=== PATIENT | male | born 1965 | race Caucasian/White ===

== ENCOUNTER 2021-02-05 06:53 | Outpatient (REF) | payer BC, SELFPAY ==
[2021-02-05 07:33] LABS: Hematocrit 46.8 % (42-52); Hemoglobin 15.7 g/dl (14.0-18.0); Mean Corpuscular HGB Conc 33.5 g/dl (31.0-36.0); Mean Corpuscular Volume 86.5 fL (80-98); Mean Platelet Volume 9.9 fL (9.4-12.4); Platelet Count 254 X10*3/uL (160-400); Red Blood Count 5.41 X10*6/uL (4.60-5.80); Red Cell Distribution Width 12.2 % (11.0-16.0)
[2021-02-05 08:10] LABS: Anion Gap 11 (12-20); Blood Urea Nitrogen 17 mg/dL (9-16); Carbon Dioxide 29 mmol/L (22-29); Chloride 105 mmol/L (96-108); Potassium 4.6 mmol/L (3.3-5.1); Sodium 140 mmol/L (135-145)
[2021-02-05 08:11] LABS: Alanine Aminotransferase 14 U/L (0-40); Albumin Level 4.3 g/dL (3.5-5.0); Alkaline Phosphatase 67 U/L (39-117); Aspartate Amino Transferase 14 U/L (5-37); Bilirubin Direct 0.2 mg/dL (0.0-0.5); Bilirubin Total 0.6 mg/dL (0.0-1.0); C Reactive Protein 0.13 mg/dL (< or = 0.50); Calcium 9.5 mg/dL (8.4-10.2); Estimated Glomerular Filt Rate > 60; Glucose Random 99 mg/dL (60-115); Total Protein 7.2 g/dL (6.5-8.0)
[2021-02-05 08:54] LABS: Erythrocyte Sedimentation Rate 3 MM/HR (0-15)
== END 2021-02-05 06:54 | disposition home or self-care (01) ==
LOC: HO.LAB 06:53
PROVIDERS: PCP Internal Medicine; Visit Provider Internal Medicine
DX: Z00.00 Encounter for general adult medical examination without abnormal findings (principal); E11.9 Type 2 diabetes mellitus without complications; E03.9 Hypothyroidism, unspecified; M46.20 Osteomyelitis of vertebra, site unspecified
CPT/HCPCS: 36415; 80048; 80076; 85027; 85652; 86140

== ENCOUNTER 2022-07-30 06:04 | Outpatient (REF) | payer BC, SELFPAY ==
[2022-07-30 07:15] LABS: Hematocrit 45.1 % (42.0-52.0); Hemoglobin 15.3 g/dl (14.0-18.0); Mean Corpuscular HGB Conc 33.9 g/dl (31.0-36.0); Mean Corpuscular Hemoglobin 29.7 pg (27.0-33.0); Mean Corpuscular Volume 87.6 fL (80.0-98.0); Mean Platelet Volume 10.4 fL (9.4-12.4); Platelet Count 286 X10*3/uL (160-400); Red Blood Count 5.15 X10*6/uL (4.60-5.80); White Blood Count 4.9 X10*3/uL (4.8-10.8)
[2022-07-30 07:43] LABS: Alanine Aminotransferase 18 U/L (0-40); Albumin Level 4.3 g/dL (3.5-5.0); Alkaline Phosphatase 56 U/L (39-117); Anion Gap 15 (12-20); Aspartate Amino Transferase 19 U/L (5-37); Bilirubin Direct 0.3 mg/dL (0.0-0.5); Blood Urea Nitrogen 12 mg/dL (9-16); Calcium 9.5 mg/dL (8.4-10.2); Carbon Dioxide 26 mmol/L (22-29); Chloride 105 mmol/L (96-108); Cholesterol 236 mg/dL; Estimated Glomerular Filt Rate > 60; Glucose Random 91 mg/dL (60-115); HDL Cholesterol 52 mg/dL; LDL Cholesterol Calculated 167 mg/dl; Potassium 4.5 mmol/L (3.3-5.1); Sodium 141 mmol/L (135-145); Total Protein 6.9 g/dL (6.5-8.0); Triglycerides 89 mg/dL
[2022-07-30 08:51] LABS: Appearance Urine Clear; Color Urine Yellow; Glucose Urine UA Negative (Negative); Leukocyte Esterase Urine Negative (Negative); Nitrite Urine Negative (Negative); Urine Blood Negative (Negative); Urine Ketones Negative (Negative); Urine Protein Negative (Neg-Trace)
== END 2022-07-30 06:05 | disposition home or self-care (01) ==
LOC: HO.LAB 06:04
PROVIDERS: PCP Internal Medicine; Visit Provider Internal Medicine
DX: E78.00 Pure hypercholesterolemia, unspecified (principal)
CPT/HCPCS: 36415; 80048; 80061; 80076; 81003; 84443; 85027

== ENCOUNTER 2023-07-03 09:39 | Outpatient (AMB) | payer BC, SELFPAY ==
--- NOTE | 2023-07-03 09:43 | MHC.PC.OV ---
Vital Signs 07/03/23 09:45 Height 6 ft 1 in Weight 174 lb 8 oz BMI 23.0 BP 100/70 Blood Pressure Location Lt brachial Position Sitting Pulse 55 Pulse Source Pulse Oximeter Pulse Oximetry (%) 93 Oxygen Delivery Method Room Air Intake Visit Reasons: Depression, lower back pain Intake Note: Patient is here to follow up on Depression and lower back pain. Skirt Maker Required: No Investor Relations Director: Not Required per policy Accompanied by: Self / Same As Patient Allergies No Known Allergies [No Known Allergies*] Allergy (Verified 07/06/23 10:42) Medication List - Last Reconciled 07/06/23 by Lavelle Quinones MD pregabalin (Lyrica) 75 mg PO BID Tobacco use date assessed: 07/03/23 Dental Screening Dental Screen Date: 07/03/23 Did you have a dental visit in the last 12 months?: Yes Did you have a dental problem in the last 6 months where you did not have access to dental care?: No Was dental information given to patient?: Patient has dentist HPI Depression, lower back pain HPI Details 58-year-old male presents to the office to discuss his chronic medical conditions. In January of this year, patient started having low back pain after skiing. He took 3 weeks off, had an x-ray, MRI of the spine. The MRI showed degenerative joint disease in the L3-L4 area. The orthopedic provider started him on Lyrica and has kept him at that dosage for twice a day. Continues to have pain in the lower back area. Patient is not exercising. Patient admits that part of his symptoms are aggravated due to the underlying depression. He feels very anxious about his low back pain. Able to function and do all activities of daily living. [facility] Medical History Degenerative joint disease (DJD) of lumbar spine Generalized anxiety disorder Osteomyelitis of spine Surgical History History of appendectomy History of vasectomy Family History Father Lung cancer Mother Alive and well Social History Housing: House Alcohol intake: former Patient Tobacco Use Status: Never used Tobacco e-Cigarette/Vaping Use: Never Used Second Hand Smoke Exposure: No service: No Current occupational status: employed Current occupation: [employer] Cognitive needs: No Hearing needs: No Vision needs: Yes (glasses) Questionnaire PHQ-9 Over the last 2 weeks, how often have you been bothered by any of the following problems? 1. Little interest or pleasure in doing things: more than half the days 2. Feeling down, depressed, or hopeless: more than half the days 3. Trouble falling or staying asleep, or sleeping too much: several days 4. Feeling tired or having little energy: not at all 5. Poor appetite or overeating: several days 6. Feeling bad about yourself - or that you are a failure or have let yourself or your family down: not at all 7. Trouble concentrating on things, such as reading the newspaper or watching television: not at all 8. Moving or speaking so slowly that other people could have noticed. Or the opposite - being so fidgety or restless that you have been moving around a lot more than usual: several days 9. Thoughts that you would be better off or of hurting yourself in some way: not at all Total score: 7 Depression Screening Interpretation: Positive Depression Screening Follow-up: Existing condition Source: Developed by Drs. Ryan Harmon, Yoly Lowery, Shakeel Rodríguez and colleagues, with an educational dmitry from [employer]. Thrive Questionnaire Date Thrive assessed: 07/03/23 I am a: Patient What is your living situation today?: I have a steady place to live Within the past 12 months, did the food you bought not last and you didn't have the money to get more?: Never true Within the past 12 months, did you worry whether your food would run out before you got money to buy more?: Never true Do you have trouble paying for medicines?: No Do you have trouble getting transportation to medical appointments?: No Do you have trouble paying your heating and electricity bill?: No Do you have trouble taking care of your child, family member or friend?: No Do you have trouble with day-to-day activities such as bathing, preparing meals, shopping, managing finances, etc.?: No Are you currently unemployed and looking for a job?: No Are you interested in more education?: No Currently or been in a relationship where the following occur: no concerns reported AUDIT C Alcohol Use Questionnaire (AUDIT-C) 1. How often do you have a drink containing alcohol?: Never Total Score: 0 ILENE-7 AMB Questionnaire ILENE-7 Date ILENE - 7 assessed: 07/03/23 Feeling nervous, anxious, or on edge: 0 = Not at all Not being able to stop or control worryin = Not at all Worrying too much about different things: 0 = Not at all Trouble relaxin = Not at all Being so restless that it is hard to sit still: 0 = Not at all Becoming easily annoyed or irritable: 0 = Not at all Feeling afraid as if something awful might happen: 0 = Not at all Total ILENE-7 score (0-4 normal; 5-9 mild; 10-14 moderate; 15-21 severe): 0 Source: Developed by Drs. Ryan Harmon, Yoly Lowery, Shakeel Rodríguez and colleagues, with an educational dmitry from [employer]. Physical exam (Primary Care) Vital Signs: Last Vital Signs Pulse 55 07/03/23 09:45 BP 100/70 07/03/23 09:45 Pulse Ox 93 07/03/23 09:45 Oxygen Delivery Method Room Air 07/03/23 09:45 Care Plan Goal for BP management: Blood pressure is in range. BMI result Body Mass Index 23.0 Tobacco/Smoking Status: Tobacco use Status Tobacco use date assessed 07/03/23 07/03/23 09:51 Patient Tobacco Use Status Never used Tobacco 07/03/23 09:51 e-Cigarette/Vaping Use Never Used 07/03/23 09:51 PHQ-9: PHQ-9 Score PHQ-9: Total score 7 07/03/23 09:51 Depression Screening Interpretation: Positive Depression Screening Follow-up: Existing condition Thrive Assessment: Date of Thrive Assessment Date Thrive assessed 07/03/23 07/03/23 09:51 Currently or been in a relationship where the following occur: no concerns reported Const General: cooperative, healthy appearing and comfortable HENMT Head: Yes normal to inspection and Yes atraumatic Eyes General: appearance normal, both eyes and all related structures Neck Neck: Yes normal visual inspection and Yes full ROM Chest Chest palpation & inspection: normal inspection of the chest Resp Effort & Inspection: normal respiratory effort Auscultation: clear to auscultation bilaterally Cardio Jugular venous distension: no JVD Palpation: normal PMI Rate: regular rate Heart sounds: S1 normal heart sound present and S2 normal heart sound present GI Palpation (GI): Soft to palpation and Tenderness to palpation present (GI) Extrem General: Yes normal to inspection and Yes full ROM Assessment and Plan Assessment & Plan (1) Osteomyelitis of spine: Code(s): M46.20 - Osteomyelitis of vertebra, site unspecified Plan: This condition has resolved. (2) Degenerative joint disease (DJD) of lumbar spine: Code(s): M47.816 - Spondylosis without myelopathy or radiculopathy, lumbar region Plan: Patient was advised to continue medication. He needs to start resuming his daily exercises including biking. (3) Generalized anxiety disorder: Code(s): F41.1 - Generalized anxiety disorder Plan: Currently on no medications. Patient was offered a therapist. For the moment he has declined. Orders: Orders Basic Metabolic Panel Today F41.1 - Generalized anxiety disorder, M47.816 - Spondylosis without myelopathy or radiculopathy, lumbar region Lipid Panel Today F41.1 - Generalized anxiety disorder, M47.816 - Spondylosis without myelopathy or radiculopathy, lumbar region Liver Panel Today F41.1 - Generalized anxiety disorder, M47.816 - Spondylosis without myelopathy or radiculopathy, lumbar region Thyroid Stimulating Hormone Today F41.1 - Generalized anxiety disorder, M47.816 - Spondylosis without myelopathy or radiculopathy, lumbar region Complete Blood Count no Diff Today F41.1 - Generalized anxiety disorder, M47.816 - Spondylosis without myelopathy or radiculopathy, lumbar region UA and rflx microscopic Today F41.1 - Generalized anxiety disorder, M47.816 - Spondylosis without myelopathy or radiculopathy, lumbar region Coding Level of Care Code Est Pt Level 4 (40245) Diagnoses Osteomyelitis of spine M46.20 Degenerative joint disease (DJD) of lumbar spine M47.816 Generalized anxiety disorder F41.1
[2023-07-03 09:45] VITALS: BP 100/70; PULSE 55; O2SAT 93; BMI 23.0
== END 2023-07-03 13:12 | disposition home or self-care (01) ==
PROVIDERS: PCP Internal Medicine; Visit Provider Internal Medicine
DX: M46.20 Osteomyelitis of vertebra, site unspecified (principal); M47.816 Spondylosis without myelopathy or radiculopathy, lumbar region; F41.1 Generalized anxiety disorder
CPT/HCPCS: 99214

== ENCOUNTER 2023-07-14 06:54 | Outpatient (REF) | payer BC, SELFPAY ==
[2023-07-14 07:49] LABS: Hematocrit 46.8 % (42.0-52.0); Mean Corpuscular HGB Conc 34.2 g/dl (31.0-36.0); Mean Corpuscular Hemoglobin 30.4 pg (27.0-33.0); Mean Corpuscular Volume 88.8 fL (80.0-98.0); Mean Platelet Volume 10.3 fL (9.4-12.4); Platelet Count 286 X10*3/uL (160-400); Red Blood Count 5.27 X10*6/uL (4.60-5.80); Red Cell Distribution Width 12.4 % (11.0-16.0)
[2023-07-14 09:24] LABS: Appearance Urine Clear; Color Urine Yellow; Glucose Urine UA Negative (Negative); Leukocyte Esterase Urine Negative (Negative); Nitrite Urine Negative (Negative); Urine Blood Negative (Negative); Urine Ketones Negative (Negative); Urine Protein Negative (Neg-Trace)
[2023-07-14 10:27] LABS: Alanine Aminotransferase 16 U/L (0-40); Albumin Level 4.3 g/dL (3.5-5.0); Alkaline Phosphatase 56 U/L (39-117); Anion Gap 14 (12-20); Aspartate Amino Transferase 15 U/L (5-37); Bilirubin Direct 0.3 mg/dL (0.0-0.5); Bilirubin Total 1.3 mg/dL (0.0-1.0); Blood Urea Nitrogen 9 mg/dL (9-16); Calcium 9.9 mg/dL (8.4-10.2); Carbon Dioxide 25 mmol/L (22-29); Chloride 103 mmol/L (96-108); Cholesterol 223 mg/dL; Estimated Glomerular Filt Rate > 60; Glucose Random 92 mg/dL (60-115); HDL Cholesterol 51 mg/dL; LDL Cholesterol Calculated 158 mg/dl; Sodium 138 mmol/L (135-145); Thyroid Stimulating Hormone 1.85 uIU/mL (0.32-4.0); Total Protein 7.2 g/dL (6.5-8.0); Triglycerides 73 mg/dL
== END 2023-07-14 06:55 | disposition home or self-care (01) ==
LOC: HO.LAB 06:54
PROVIDERS: PCP Internal Medicine; Visit Provider Internal Medicine
DX: M47.816 Spondylosis without myelopathy or radiculopathy, lumbar region (principal); F41.1 Generalized anxiety disorder; E78.5 Hyperlipidemia, unspecified
CPT/HCPCS: 36415; 80048; 80061; 80076; 81003; 84443; 85027

== ENCOUNTER 2025-06-30 06:25 | Outpatient (REF) | payer BC, SELFPAY ==
--- OUTSIDE RECORDS SUMMARY | 2024-07-05 05:30 | XMS_ITS ---
Author Organization [facility] Address [address] [place] [address] Care Team Providers Care Front Desk Clerk Name Role Phone Lavelle Quinones Primary Care Provider [phone] Mag Sanchez [phone] Encounters Encounter Location Date Provider Diagnosis [facility] [address] [place] [address] 07/05/2024 Mag Sanchez Plan Of Treatment No Information Progress Notes * Sera CURRYOB:1965 (60 yo M)Acc No.[id number]:07/05/2024 Progress Notes Patient: Jus POWER Provider: Amado Sanchez DPM :1965 A ge:59 Y S ex:Male Date:07/05/2024 Address:[address] [place], [place] [id number] Pcp:Lavelle Quinones Subjective: * Chief Complaints: * * Medical History: Objective: * Vitals: Assessment: Plan: * Treatment: * Images: * The named appointment provid er may or may not be the originator of this progress note, and it is not deemed complete until electronically signed by the appointment provider. Sign off status: Pending * Provider: Amado Sanchez DPM Date: 07/05/2024 Generated for Printi ng/Faxing/eTransmitting on: 06/30/2025 06:27 AM EDT
--- OUTSIDE RECORDS SUMMARY | 2025-06-30 06:28 | XMS_ITS | Clinical Summary ---
Author Organization [facility] Address [address] [facility] [place] [address] Care Team Providers Care Supervisor Nutritional Yeast Name Role Phone Unavailable Primary Care Provider Unavailabl e Social History Tobacco Use Types Packs/Day Years Used Date Smoking Tobacco: Never Assessed Sex and Gender Information Value Date Recorded Sex Assigned at Not on file Legal Sex Male 5:20 PM EDT Gender Identity Not on file Sexual Orientation Not on file Plan of Treatment Health Maintenance Due Date Last Done Comments CT Colonography 1967 Colonoscopy 1967 Colorectal Cancer Screening 1965 FIT DNA 1967 FIT 1967 Sigmoidoscopy (10 year) with FIT yearly 1967 Sigmoidoscopy 1967 HIV screen 1985 Hepatitis C Screening 1985 Lipid Screening 1985 Hepatitis B vaccine (0-59 yrs) and Risk (1) 1986 Tetanus/Diphtheria/Pertussis Vaccines (1 - Tdap) 03/20 Pneumoccocal Vaccine: 50+ (1 of 1 - PCV) 2017 Zoster vaccine (1 of 2) 2017 Advance Directive 2022 Covid-19 Vaccine (1 - season) 2024 Influenza (Flu) vaccine (1 o f 1 - Influenza standard series) 08/01/2025
[2025-06-30 07:11] LABS: Hematocrit 47.8 % (42.0-52.0); Hemoglobin 16.1 g/dl (14.0-18.0); Mean Corpuscular HGB Conc 33.7 g/dl (31.0-36.0); Mean Corpuscular Hemoglobin 29.5 pg (27.0-33.0); Mean Corpuscular Volume 87.5 fL (80.0-98.0); NRBC Abs Auto 0.000 X10*3/uL (0.0-0.012); NRBC Pct Auto 0.0 /100WBC (0.0-0.2); Platelet Count 260 X10*3/uL (160-400); Red Blood Count 5.46 X10*6/uL (4.60-5.80); White Blood Count 5.5 X10*3/uL (4.8-10.8)
[2025-06-30 07:23] LABS: Alanine Aminotransferase 31 U/L (0-40); Albumin Level 4.3 g/dL (3.5-5.0); Alkaline Phosphatase 59 U/L (39-117); Anion Gap 13 (12-20); Aspartate Amino Transferase 27 U/L (5-37); Blood Urea Nitrogen 16 mg/dL (9-16); Calcium 9.1 mg/dL (8.4-10.2); Carbon Dioxide 26 mmol/L (22-29); Chloride 105 mmol/L (96-108); Cholesterol 232 mg/dL (<200); Estimated Glomerular Filt Rate > 60; HDL Cholesterol 49 mg/dL (>40); Potassium 5.3 mmol/L (3.3-5.1); Sodium 139 mmol/L (135-145); Total Protein 6.8 g/dL (6.5-8.0); Triglycerides 57 mg/dL (<150)
[2025-06-30 07:40] LABS: Thyroid Stimulating Hormone 2.30 uIU/mL (0.32-4.0)
[2025-06-30 07:51] LABS: Appearance Urine Clear; Glucose Urine UA Negative (Negative); PH 6.0 (5.0-9.0); Specific Gravity - Urine 1.020 (1.005-1.025); UMIC TRIGGER UA YES
== END 2025-06-30 06:26 | disposition home or self-care (01) ==
LOC: HO.LAB 06:25
PROVIDERS: PCP Internal Medicine; Visit Provider Internal Medicine
DX: E78.5 Hyperlipidemia, unspecified (principal)
CPT/HCPCS: 36415; 80048; 80061; 80076; 81001; 84153; 84443; 85027

== ENCOUNTER 2025-07-20 11:14 | Outpatient (AMB) | payer BC, SELFPAY ==
--- OUTSIDE RECORDS SUMMARY | 2024-07-05 05:30 | XMS_ITS ---
Author Organization [facility] Address [address] [place] [address] Care Team Providers Care Transition Manager Name Role Phone Lavelle Quinones Primary Care Provider Mag Sanchez [phone] Encounters Encounter Location Date Provider Diagnosis [facility] [address] [place] [address] 07/05/2024 Mag Sanchez Plan Of Treatment No Information Progress Notes * Sera CURRYOB:1965 (60 yo M)Acc No.[id number]:07/05/2024 Progress Notes Patient: Jus POWER Provider: Amado Sanchez DPM :1965 A ge:59 Y S ex:Male Date:07/05/2024 Address:[address] [place], [place] [id number] Pcp:Lavelle Quinones Subjective: * Chief Complaints: * [...] Date: 07/05/2024 Generated for Printi ng/Faxing/eTransmitting on: 07/20/2025 12:37 PM EDT
--- NOTE | 2025-07-20 11:20 | A.OFFPC_ITS ---
Vital Signs 07/20/25 11:21 Height 6 ft 1 in Weight 185 lb 5 oz BMI 24.4 BP 128/62 Blood Pressure Location Lt brachial Position Sitting Pulse 78 Pulse Source Pulse Oximeter Pulse Oximetry (%) 98 Intake Visit Reasons: Annual PE Manager Embalmer Funeral Director Required: No Accompanied by: Self / Same As Patient Allergies No Known Allergies (No Known Allergies*) Allergy (Verified 07/20/25 11:22) Tobacco use date assessed: 07/20/25 Dental Screening Dental Screen Date: 07/20/25 Did you have a dental visit in the last 12 months?: No Did you have a dental problem in the last 6 months where you did not have access to dental care?: No Was dental information given to patient?: No HPI Annual PE HPI Details 60-year-old male presents to the office requesting an annual physical. Since last office visit patient has retired. He spends his time skiing and mountain biking. Continues to be very active and able to function and do all activities of daily living. [facility] Medical History (Updated 07/20/25 @ 13:05 by Lavelle Quinones MD) Hyperlipidemia Degenerative joint disease (DJD) of lumbar spine Generalized anxiety disorder Osteomyelitis of spine Surgical History History of vasectomy History of appendectomy Family History Father Lung cancer Mother Alive and well Social History Housing: House Alcohol intake: former Patient Tobacco Use Status: Never used Tobacco e-Cigarette/Vaping Use: Never Used Second Hand Smoke Exposure: No service: No Current occupational status: employed Current occupation: [employer] Cognitive needs: No Hearing needs: No Vision needs: Yes (glasses) Questionnaire PHQ-9 Over the last 2 weeks, how often have you been bothered by any of the following problems? 1. Little interest or pleasure in doing things: not at all 2. Feeling down, depressed, or hopeless: not at all 3. Trouble falling or staying asleep, or sleeping too much: not at all 4. Feeling tired or having little energy: not at all 5. Poor appetite or overeating: not at all 6. Feeling bad about yourself - or that you are a failure or have let yourself or your family down: not at all 7. Trouble concentrating on things, such as reading the newspaper or watching television: not at all 8. Moving or speaking so slowly that other people could have noticed. Or the opposite - being so fidgety or restless that you have been moving around a lot more than usual: not at all 9. Thoughts that you would be better off or of hurting yourself in some way: not at all Total score: 0 Depression Screening Interpretation: Negative Depression Screening Done: Yes Source: Developed by Drs. Ryna Harmon, Yoly Lowery, Shakeel Rodríguez and colleagues, with an educational dmitry from [employer]. Thrive Questionnaire Date Thrive assessed: 07/19/25 I am a: Patient What is your living situation today?: I choose not to answer this question Within the past 12 months, did the food you bought not last and you didn't have the money to get more?: Never true Within the past 12 months, did you worry whether your food would run out before you got money to buy more?: Never true Do you have trouble paying for medicines?: No Do you have trouble getting transportation to medical appointments?: No Do you have trouble paying your heating and electricity bill?: No Do you have trouble taking care of your child, family member or friend?: No Do you have trouble with day-to-day activities such as bathing, preparing meals, shopping, managing finances, etc.?: No Are you currently unemployed and looking for a job?: No Are you interested in more education?: No Please select the resources that you would like help with: None Currently or been in a relationship where the following occur: No concerns reported THRIVE Score: 0 AUDIT C Alcohol Use Questionnaire (AUDIT-C) 1. How often do you have a drink containing alcohol?: Never Total Score: 0 ILENE-7 AMB Questionnaire ILENE-7 Date ILENE - 7 assessed: 07/03/23 Feeling nervous, anxious, or on edge: 0 = Not at all Not being able to stop or control worryin = Not at all Worrying too much about different things: 0 = Not at all Trouble relaxin = Not at all Being so restless that it is hard to sit still: 0 = Not at all Becoming easily annoyed or irritable: 0 = Not at all Feeling afraid as if something awful might happen: 0 = Not at all Total ILENE-7 score (0-4 normal; 5-9 mild; 10-14 moderate; 15-21 severe): 0 Source: Developed by Drs. Ryan Harmon, Yoly Lowery, Shakeel Rodríguez and colleagues, with an educational dmitry from [employer]. Physical exam (Primary Care) Vital Signs: Last Vital Signs Pulse 78 07/20/25 11:21 BP 128/62 07/20/25 11:21 Pulse Ox 98 07/20/25 11:21 Care Plan Goal for BP management: Blood pressure is in range. BMI result Body Mass Index 24.4 Tobacco/Smoking Status: Tobacco use Status Tobacco use date assessed 07/20/25 07/20/25 11:24 Patient Tobacco Use Status Never used Tobacco 07/20/25 11:21 e-Cigarette/Vaping Use Never Used 07/20/25 11:21 PHQ-9: PHQ-9 Score PHQ-9: Total score 0 07/20/25 11:24 Depression Screening Interpretation: Negative Thrive Assessment: Date of Thrive Assessment Date Thrive assessed 07/19/25 07/20/25 11:21 Currently or been in a relationship where the following occur: No concerns reported Coding Level of Care Code Est Pt Prev Care 40-64y(18183) Diagnoses Generalized anxiety disorder F41.1 Osteomyelitis of spine M46.20 Hyperlipidemia E78.5 Annual physical exam Z00.00 Assessment & Plan Assessment & Plan (1) Generalized anxiety disorder: Code(s): F41.1 - Generalized anxiety disorder Category: Medical Plan: Condition is stable without any medications. Patient is able to function and do all activities of daily living. (2) Osteomyelitis of spine: Code(s): M46.20 - Osteomyelitis of vertebra, site unspecified Category: Medical Plan: This condition has long resolved. (3) Hyperlipidemia: Code(s): E78.5 - Hyperlipidemia, unspecified Category: Medical Plan: Recent blood work shows elevation of LDL. Patient declines to use statins. Understands the risks of uncontrolled hyper cholesterolemia. (4) Annual physical exam: Code(s): Z00.00 - Encounter for general adult medical examination without abnormal findings Category: Medical Plan: Up-to-date on all screening procedures.
[2025-07-20 11:21] VITALS: BP 128/62; PULSE 78; O2SAT 98; BMI 24.4
--- OUTSIDE RECORDS SUMMARY | 2025-07-20 12:38 | XMS_ITS | Clinical Summary ---
Author Organization [facility] Address [address] [facility] [place] [address] Care Team Providers Care Racking Technician Name Role Phone Unavailable Primary Care Provider [...]
== END 2025-07-20 12:39 | disposition home or self-care (01) ==
LOC: HO.HMCH 11:15
PROVIDERS: PCP Internal Medicine; Visit Provider Internal Medicine
DX: F41.1 Generalized anxiety disorder (principal); M46.20 Osteomyelitis of vertebra, site unspecified; E78.5 Hyperlipidemia, unspecified; Z00.00 Encounter for general adult medical examination without abnormal findings